=== PATIENT | male | born 1995 | race Caucasian/White ===

== ENCOUNTER 2019-09-28 06:21 | Emergency (ER) | payer BC ==
--- NOTE | 2019-09-28 07:15 | XR ---
EXAMINATION TYPE: XR chest 1V DATE OF EXAM: 09/28/2019 COMPARISON: NONE HISTORY: Shortness of breath and cough TECHNIQUE: Single frontal view of the chest is obtained. FINDINGS: There are low lung volumes exaggerating the pulmonary vasculature. There is no focal air sp serena opacity, pleural effusion, or pneumothorax seen. The cardiac silhouette size is within normal li mits. The osseous structures are intact. IMPRESSION: Hypoventilatory lungs otherwise no acute process.
--- NOTE | 2019-09-28 07:38 | ED ---
General Adult HPI - General Chief complaint: Shortness of Breath Stated complaint: SOB Time Seen by Provider: 09/28/19 06:32 Source: patient, RN notes reviewed, old records reviewed Mode of arrival: ambulatory Limitations: no limitations - History of Present Illness Initial comments: 23-year-old male patient no pertinent past medical history presents to ED for evaluation of some mild shortness of breath. Patient reports that he was laying in bed last night and had some mild shortness of breath as well as some chest congestion. Denies any other symptoms. Denies any chest pain. Does report that 2 other family members are positive for coronavirus. He denies any other complaints. Systemic: Pt denies fatigue, fever/chills, rash. Pt denies weakness, night sweats, weight loss. Neuro: Pt denies headache, visual disturbances, syncope or pre-syncope. HEENT: Pt denies ocular discharge or irritation, otalgia, rhinorrhea, pharyngitis or notable lymphadenopathy. Cardiopulmonary: Pt denies chest pain, heart palpitations, dyspnea on exertion. Abdominal/GI: Pt denies abdominal pain, n/v/d. : Pt denies dysuria, burning w/ urination, frequency/urgency. Denies new onset urinary or bowel incontinence. MSK: Pt denies myalgia, loss of strength or function in extremities. Neuro: Pt denies new onset weakness, paresthesias. - Related Data Allergies Allergy/AdvReac Type Severity Reaction Status Date / Time No Known Allergies Allergy Verified 09/28/19 06:29 Review of Systems ROS Statement: Those systems with pertinent positive or pertinent negative responses have been documented in the HPI. ROS Other: All systems not noted in ROS Statement are negative. Past Medical History Past Medical History: No Reported History History of Any Multi-Drug Resistant Organisms: None Reported Past Surgical History: No Surgical Hx Reported Past Psychological History: No Psychological Hx Reported Smoking Status: Never smoker Past Alcohol Use History: Occasional Past Drug Use History: Unable to Obtain General Exam - General Exam Comments Initial Comments: Constitutional: NAD, AOX3, Pt has pleasant affect. HEENT: NC/AT, trachea midline, neck supple, no lymphadenopathy. External ears appear normal, without discharge. Mucous membranes moist. Eyes PERRLA, EOM intact. There is no scleral icterus. No pallor noted. Cardiopulmonary: RRR, no murmurs, rubs or gallops, no JVD noted. Lungs CTAB in anterior and posterior velazquez. No peripheral edema. Abdominal exam: Abdomen soft and non-distended. Abdomen non-tender to palpation in all 4 quadrants. No hepatosplenomegaly. No ecchymosis Neuro: CN II-XII grossly intact. No nuchal rigidity. No raccon eyes, no wright sign. No cervical spinal tenderness. MSK: No posterior calf tenderness bilaterally, homans sign negative bilaterally. Posterior tibialis and radial pulse +2 bilaterally. Sensation intact in upper and lower extremities. Full active ROM in upper and lower extremities, 5/5 stregnth. Limitations: no limitations Course Vital Signs 09/28/19 09/28/19 06:23 07:39 Temperature 99.3 F 98.5 F Pulse Rate 75 74 Respiratory 24 18 Rate Blood Pressure 127/75 132/62 O2 Sat by Pulse 98 98 Oximetry Medical Decision Making - Medical Decision Making 23-year-old male patient no pertinent past medical history presents to ED for evaluation of some mild shortness of breath. Patient reports that he was laying in bed last night and had some mild shortness of breath as well as some chest congestion. Denies any other symptoms. Denies any chest pain. Does report that 2 other family members are positive for coronavirus. He denies any other complaints. Patient will signs are stable, afebrile. Physical exam did not display acute pathology. Patient ambulated around ambulatory pulse ox remained at 98%. Stated he does not subjectively feel short of breath. Chest x-ray reveals hypoventilatory lungs otherwise no acute process. Coronavirus PCR is positive. Patient is in no respiratory distress lungs respirations are unlabo red and even. Patient will be discharged with strict return precautions and outpatient follow up. Case discussed with Dr. Brown. - Lab Data Lab Results 09/28/19 Range/Units 06:43 Coronavirus (PCR) Detected A (Not Detectd) Disposition Clinical Impression: COVID-19 virus infection Disposition: HOME SELF-CARE Condition: Stable Instructions (If sedation given, give patient instructions): Acute Cough (ED) Additional Instructions: Follow-up with primary care provider today via a phone call. Closely monitor symptoms at home. If fever develops use Tylenol to control it. Continue to drink left of fluids to stay hydrated. If breathing worsens or any other concerning new symptoms develop return to emergency department. Is patient prescribed a controlled substance at d/c from ED?: No Referrals: None,Stated [Primary Care Provider] - 1-2 days [facility] [NON-STAFF] - 1-2 days
[2019-09-28 07:40] VITALS: BP 132/62; PULSE 74; RESP 18; TEMP 98.5
== END 2019-09-28 08:00 | disposition home or self-care (01) ==
LOC: EC 06:21
DX: U07.1 COVID-19 (principal)
CPT/HCPCS: 71045; 87635; 99285

== ENCOUNTER 2020-12-18 08:15 | Emergency (ER) | payer BC, OTHER ==
[2020-12-18 08:19] VITALS: BP 120/74; PULSE 84; RESP 18; TEMP 98.4
[2020-12-18] MEDS ORDERED: ACET/COD 300 MG/30 MG STARTER PACK 6 TAB BTL PO STA (08:41)
[2020-12-18] MEDS ORDERED: CYCLOBENZAPRINE 10MG STARTER 3 TAB BTL PO STA (08:41)
--- NOTE | 2020-12-18 08:43 | ED ---
Back Pain HPI - General Chief Complaint: Back Pain/Injury Stated Complaint: Back Pain Time Seen by Provider: 12/18/20 08:34 Source: patient, RN notes reviewed Limitations: no limitations - History of Present Illness Initial Comments: This a 25-year-old male presents emergency Department with chief complaint of back pain. Patient states bothersome for last couple days. Patient states he slept wrong and twisted wrong. States he started working states that he does a lot of twisting and bending. Patient states his forearm is mildly low back on the left side is no radicular symptoms denies any bowel bladder incontinence or retention or abdominal pain no chest pain or shortness of breath no saddle anesthesias. Patient has tried some Motrin was which has helped some. - Related Data Previous Rx's Medication Instructions Recorded Cyclobenzaprine [Flexeril] 10 mg PO TID PRN #15 tab 12/18/20 Ibuprofen [Motrin] 600 mg PO Q8HR PRN #20 tab 12/18/20 Allergies Allergy/AdvReac Type Severity Reaction Status Date / Time No Known Allergies Allergy Verified 12/18/20 08:19 Review of Systems ROS Statement: Those systems with pertinent positive or pertinent negative responses have been documented in the HPI. ROS Other: All systems not noted in ROS Statement are negative. Past Medical History Past Medical History: No Reported History History of Any Multi-Drug Resistant Organisms: None Reported Past Surgical History: No Surgical Hx Reported Past Psychological History: No Psychological Hx Reported Smoking Status: Never smoker Past Alcohol Use History: Occasional Past Drug Use History: None Reported General Exam Limitations: no limitations General appearance: alert, in no apparent distress Head exam: Present: atraumatic, normocephalic, normal inspection ENT exam: Present: normal exam, mucous membranes moist Neck exam: Present: normal inspection, full ROM. Absent: tenderness, meningis mus, lymphadenopathy Respiratory exam: Present: normal lung sounds bilaterally. Absent: respiratory distress, wheezes, rales, rhonchi, stridor Cardiovascular Exam: Present: regular rate, normal rhythm, normal heart sounds. Absent: systolic murmur, diastolic murmur, rubs, gallop, clicks GI/Abdominal exam: Present: soft, normal bowel sounds. Absent: distended, tenderness, guarding, rebound, rigid Extremities exam: Present: normal inspection, full ROM, normal capillary refill. Absent: tenderness, pedal edema, joint swelling, calf tenderness Back exam: Present: full ROM, tenderness (Left-sided paraspinal lower thoracic), muscle spasm, paraspinal tenderness. Absent: vertebral tenderness Neurological exam: Present: reflexes normal. Absent: motor sensory deficit Course Vital Signs 12/18/20 08:16 Temperature 98.4 F Pulse Rate 84 Respiratory 18 Rate Blood Pressure 120/74 O2 Sat by Pulse 98 Oximetry Medical Decision Making - Medical Decision Making Patient is other acute back strain, muscle spasm was started on Motrin, Flexeril advised to continue icing, heat and stretch. Patient has no red flag symptoms. Disposition Clinical Impression: Thoracic back pain Disposition: HOME SELF-CARE Condition: Stable Instructions (If sedation given, give patient instructions): Back Pain (ED), Lower Back Exercises (ED) Additional Instructions: Please return to the Emergency Department if symptoms worsen or any other concerns. Prescriptions: Cyclobenzaprine [Flexeril] 10 mg PO TID PRN #15 tab PRN Reason: Muscle Spasm Ibuprofen [Motrin] 600 mg PO Q8HR PRN #20 tab PRN Reason: Pain Is patient prescribed a controlled substance at d/c from ED?: No Referrals: None,Stated [Primary Care Provider] - 1-2 days Time of Disposition: 08:43
== END 2020-12-18 08:57 | disposition home or self-care (01) ==
LOC: EC 08:15
DX: M54.6 Pain in thoracic spine (principal)
CPT/HCPCS: 99283

== ENCOUNTER 2021-09-28 22:25 | Emergency (ER) | payer OTHER ==
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
[2021-09-28 22:45] VITALS: RESP 18
[2021-09-28] MEDS ORDERED: SODIUM CHLORIDE 0.9% 1,000 ML IV STA (22:47)
[2021-09-28] MEDS ORDERED: PROCHLORPERAZINE INJ 10 MG/2 ML VIAL IVP STA (22:47)
[2021-09-28] MEDS ORDERED: HYDROmorphone 1 MG/ML 1 ML SYRINGE IVP STA ×2 (22:47→23:52)
[2021-09-28] MEDS ORDERED: LORazepam 2 MG/ML INJ IV STA (22:47)
[2021-09-28] MEDS ORDERED: DIPH,PERTUS(ACELL)TETVAC-LF 0.5 ML VIAL IM ONE (22:47)
[2021-09-28 23:10] LABS: ALT 58 U/L (4-49); AST 52 U/L (17-59); African American GFR (CKD) >90 (>60 ml/min/1.73 sqM); Albumin 4.8 g/dL (3.5-5.0); Alcohol <10 mg/dL; Alkaline Phosphatase 74 U/L (38-126); Anion Gap 6 mmol/L; Blood Urea Nitrogen 14 mg/dL (9-20); Calcium 9.5 mg/dL (8.4-10.2); Carbon Dioxide 26 mmol/L (22-30); Chloride 106 mmol/L (98-107); Glucose 108 mg/dL (74-99); Non-African American GFR(CKD) >90 (>60 ml/min/1.73 sqM); Potassium 4.3 mmol/L (3.5-5.1); Sodium 138 mmol/L (137-145); Total Bilirubin 0.8 mg/dL (0.2-1.3); Total Protein 7.6 g/dL (6.3-8.2)
[2021-09-28 23:13] LABS: INR 0.9 (<1.2); Prothrombin Time 10.3 sec (9.0-12.0)
[2021-09-28 23:16] LABS: Partial Thromboplastin Time 18.7 sec (22.0-30.0)
[2021-09-28 23:30] VITALS: TEMP 98.2
== END 2021-09-28 23:50 | disposition other institution (70) ==
LOC: EC 22:25
DX: T23.302A Burn of third degree of left hand, unspecified site, initial encounter (principal); X17.XXXA Contact with hot engines, machinery and tools, initial encounter; Z23 Encounter for immunization
CPT/HCPCS: 96365 ×2; 96375 ×4; 90471; 99291 ×2; 36415; 93005; 86900; 86901; 80053; 84484; 85610; 85730; 86850; 80320; 90715; J2060; J0780; J0690; J1170